=== PATIENT | male | born 1955 | race Two or more races ===

== ENCOUNTER 2018-05-05 11:32 | Outpatient (CLI) | payer OTHER | END 2018-05-05 11:53 | disposition home or self-care (01) | LOC: RAD 11:32 | DX: R04.2 Hemoptysis (principal) ==

== ENCOUNTER 2019-09-04 07:31 | Outpatient (CLI) | payer OTHER | END 2019-09-04 08:13 | disposition home or self-care (01) | LOC: NUCLEAR 07:31 | DX: I11.9 Hypertensive heart disease without heart failure (principal); I25.10 Atherosclerotic heart disease of native coronary artery without angina pectoris | CPT/HCPCS: 78452; 93017; A9500 ==

== ENCOUNTER → 2022-03-15 | Outpatient (CLI) | payer OTHER | END | disposition home or self-care (01) | LOC: NUCLEAR 08:00 | PROVIDERS: ATTEND Internal Medicine Cardiovascular Disease | DX: G45.9 Transient cerebral ischemic attack, unspecified (principal) ==